=== PATIENT | female | born 1965 | race Two or more races ===

== ENCOUNTER 2018-01-20 23:27 | Inpatient (IN) | payer OTHER ==
[~2018-01-20] VITALS: Ht 157.5 cm; Wt 70.3 kg
[~2018-01-20 23:27] MED LIST: NABUMETONE500 MG PO; PERCOCET 5/3251 TAB PO
[2018-01-20] MEDS ORDERED: PERCOCET 10-321 EACH (23:52)
[2018-01-21] MEDS ORDERED: AZO STANDARD95 MG (00:01)
[2018-01-23] MEDS ORDERED: LEVAQUIN750 MG PO (11:13)
== END 2018-01-23 12:02 | disposition home or self-care (01) | DRG 690 ==
LOC: ER 23:27 → SEC-K 01-21 08:03 → MEDI 01-21 16:47
PROC: BT43ZZZ Ultrasonography of Bilateral Kidneys (ICD-10-PCS; principal; 2018-01-21)
DX: N10 Acute pyelonephritis (principal); B96.29 Other Escherichia coli [E. coli] as the cause of diseases classified elsewhere

== ENCOUNTER 2018-02-25 07:30 | Outpatient (CLI) | payer OTHER ==
[~2018-02-25 07:30] MED LIST changes: +AZO STANDARD95 MG; +LEVAQUIN750 MG PO; +PERCOCET 10-321 EACH
== END 2018-02-25 07:55 | disposition home or self-care (01) ==
LOC: LAB 07:30
DX: Z41.1 Encounter for cosmetic surgery (principal)

== ENCOUNTER 2018-02-25 09:07 | Outpatient (CLI) | payer OTHER | END 2018-02-25 09:19 | disposition home or self-care (01) | LOC: RAD 501 09:07 | DX: M17.0 Bilateral primary osteoarthritis of knee (principal) ==

== ENCOUNTER 2019-02-06 13:12 | Outpatient (CLI) | payer OTHER | END 2019-02-06 15:52 | disposition home or self-care (01) | LOC: RAD 13:12 | DX: M75.51 Bursitis of right shoulder (principal) ==

== ENCOUNTER 2019-05-03 23:52 | Emergency (ER) | payer OTHER ==
[~2019-05-03] VITALS: Ht 157.5 cm; Wt 68.0 kg
[2019-05-04] MEDS ORDERED: KETO10TA2 PO (02:17)
== END 2019-05-04 02:22 | disposition home or self-care (01) ==
LOC: ER 23:52
DX: S20.212A Contusion of left front wall of thorax, initial encounter (principal); S20.211A Contusion of right front wall of thorax, initial encounter; W10.8XXA Fall (on) (from) other stairs and steps, initial encounter; Y93.89 Activity, other specified; Y92.89 Other specified places as the place of occurrence of the external cause; Y99.8 Other external cause status

== ENCOUNTER 2019-05-11 11:35 | Outpatient (CLI) | payer OTHER ==
[~2019-05-11 11:35] MED LIST changes: +KETO10TA2 PO
== END 2019-05-11 11:38 | disposition home or self-care (01) ==
LOC: RAD 11:35
DX: S20.22 Contusion of back wall of thorax (principal)